=== PATIENT | male | born 1990 | race Caucasian/White ===

== ENCOUNTER 2017-05-14 03:33 | Inpatient (IN) | payer MEDICAID ==
[~2017-05-14] VITALS: Ht 177.8 cm; Wt 81.6 kg
[~2017-05-14 03:33] MED LIST: CLIN300C3 PO; HYDR-548 PO; PRED50TA PO
[2017-05-14 04:31] LABS: BASOPHILS # (AUTO) 0.1 K/uL (0.0-8.0); BASOPHILS % (AUTO) 0.4 % (0.0-2.0); EOSINOPHILS % (AUTO) 0.2 % (0.0-7.0); HEMATOCRIT 31.8 % (40-50); HEMOGLOBIN 10.5 G/DL (14.0-18.0); LYMPHOCYTES # (AUTO) 0.6 K/UL (0.8-4.8); MEAN CORPUSCULAR HEMOGLOBIN 25.9 UUG (27.0-31.0); MEAN CORPUSCULAR HGB CONC 33 g/dL (32.0-37.0); MEAN CORPUSCULAR VOLUME 78.4 FL (82.0-92.0); MONOCYTES # (AUTO) 1.1 K/UL (0.1-1.30); MONOCYTES % (AUTO) 7.5 % (0.0-11.0); NEUTROPHILS # (AUTO) 12.8 K/UL (1.8-8.9); NEUTROPHILS % (AUTO) 87.9 % (38.5-71.5); PLATELET COUNT (AUTO) 220 K/UL (150-450); RED BLOOD CELL COUNT(AUTO) 4.06 MIL/UL (4.7-6.1); WHITE BLOOD COUNT (AUTO) 14.6 K/UL (4.0-11.2)
[2017-05-14] MEDS ORDERED: PIPERACILLIN SODIUM/TAZOBACTAM 3.375 G in IV DEXTROSE 5% 50 ML IV ONE (04:45)
[2017-05-14] MEDS ORDERED: VANCOMYCIN IV 1,000 MG in IV DEXTROSE 5% 250 ML IV ONE (04:45)
[2017-05-14] MEDS ORDERED: IV NORMAL SALINE 1000 ML BAG IV ONE (04:45)
[2017-05-14 04:53] LABS: BILIRUBIN,DIRECT 0.3 mg/dL (0.0-0.2); BILIRUBIN,TOTAL 0.8 mg/dL (0.2-1.0); CREATININE 1.1 mg/dL (0.6-1.3); POTASSIUM 3.3 mmol/L (3.5-5.1); TOTAL PROTEIN, SERUM 7.3 g/dL (6.4-8.2)
[2017-05-14] MEDS ORDERED: IV NORMAL SALINE 250 ML IV ONE (05:05)
[2017-05-14] MEDS ORDERED: NORMAL SALINE FLUSH 10 ML DISP.SYRIN ONE (05:05)
[2017-05-14] MEDS ORDERED: IOHEXOL 350 100 ML INFUS..BTL ONE (05:05)
[2017-05-14] MEDS ORDERED: PIPERACILLIN/TAZOBACTAM/D5W 50 ML IV ONE (05:09)
[2017-05-14] MEDS ORDERED: VANCOMYCIN IV 200 ML ONE (05:55)
[2017-05-14] MEDS ORDERED: IV NS 1000 ML 1,000 ML IV PRN (06:06)
[2017-05-14] MEDS ORDERED: MAGNESIUM HYDROXIDE 30 ML LIQUID UDC PO PRN (06:15)
[2017-05-14] MEDS ORDERED: Z GUARD REMEDY PASTE 57 GM TUBE TOP PRN (06:15)
[2017-05-14] MEDS ORDERED: VANCOMYCIN IV 1 G in PREMIXED 0 EACH IV SCH (06:15)
[2017-05-14] MEDS ORDERED: KETOROLAC TROMETHAMINE 15 MG INJ ONE (06:22)
[2017-05-14] MEDS ORDERED: KETOROLAC TROMETHAMINE 30 MG INJ IVP ONE (06:30)
[2017-05-14 08:11] VITALS: BP 94/61
[2017-05-14] MEDS: PANTOPRAZOLE SODIUM 40 MG TABLET.DR PO SCH (08:19)
[2017-05-14] MEDS ORDERED: ALBUTEROL SULFATE 2.5 MG/3 ML NEBU NEB PRN (11:00)
[2017-05-14] MEDS ORDERED: GUAIFENESIN/DEXTROMETHORPHAN 5 ML UDC PO PRN (11:00)
[2017-05-14] MEDS: IV NS 1000 ML 1,000 ML IV PRN (11:48)
[2017-05-14] MEDS: LEVOFLOXACIN 500 MG/D5W 500 MG in PREMIXED 1 EACH IV SCH (11:48)
[2017-05-14 12:05] VITALS: BP 97/58
[2017-05-14] MEDS: PIPERACILLIN SODIUM/TAZOBACTAM 4.5 G in IV DEXTROSE 5% 50 ML IV SCH ×2 (14:15→21:36)
[2017-05-14] MEDS ORDERED: POTASSIUM CHLORIDE 20 MEQ TAB.PRT.SR PO ONE (14:15)
[2017-05-14] MEDS: HYDROCODONE/APAP 5-325MG TABLET PO PRN (14:55)
[2017-05-14] MEDS ORDERED: VANCOMYCIN IV 1,250 MG in IV DEXTROSE 5% 500 ML IV SCH (16:00)
[2017-05-14 16:50] VITALS: BP 122/84
[2017-05-14 20:00] VITALS: BP 112/74
[2017-05-14] MEDS: LACTOBACILLUS RHAMNOSUS GG 1 EACH CAPSULE PO SCH (20:26)
[2017-05-14 22:09] VITALS: BP 121/82
[2017-05-14] MEDS: ACETAMINOPHEN 325 MG TABLET PO PRN (22:11)
[2017-05-14] MEDS: MORPHINE SULFATE 2 MG/1 ML DISP.SYRIN IV PRN (23:15)
[2017-05-14] MEDS ORDERED: MORPHINE SULFATE 2 MG/1 ML DISP.SYRIN ONE (23:24)
[2017-05-15] VITALS: BP 109/70
[2017-05-15] MEDS: IV NS 1000 ML 1,000 ML IV PRN ×2 (01:15→18:37)
[2017-05-15 04:00] VITALS: BP 122/75
[2017-05-15] MEDS: ACETAMINOPHEN 325 MG TABLET PO PRN ×2 (04:06→10:38)
[2017-05-15] MEDS: PIPERACILLIN SODIUM/TAZOBACTAM 4.5 G in IV DEXTROSE 5% 50 ML IV SCH ×2 (05:15→13:21)
[2017-05-15] MEDS: MORPHINE SULFATE 2 MG/1 ML DISP.SYRIN IV PRN (05:26)
[2017-05-15] MEDS ORDERED: MORPHINE SULFATE 2 MG/1 ML DISP.SYRIN ONE (05:35)
[2017-05-15] MEDS: PANTOPRAZOLE SODIUM 40 MG TABLET.DR PO SCH (06:41)
[2017-05-15 07:31] LABS: CREATININE 0.9 mg/dL (0.6-1.3); MAGNESIUM 1.6 mg/dL (1.8-2.4); PHOSPHOROUS 2.7 mg/dL (2.5-4.9); POTASSIUM 3.3 mmol/L (3.5-5.1)
[2017-05-15 07:59] LABS: BASOPHILS % (AUTO) 0.2 % (0.0-2.0); EOSINOPHILS # (AUTO) 0.1 K/uL (0.0-0.7); EOSINOPHILS % (AUTO) 0.7 % (0.0-7.0); HEMATOCRIT 32.6 % (40-50); HEMOGLOBIN 10.9 G/DL (14.0-18.0); LYMPHOCYTES # (AUTO) 0.5 K/UL (0.8-4.8); LYMPHOCYTES % (AUTO) 3.4 % (20.5-51.5); MEAN CORPUSCULAR HEMOGLOBIN 26.1 UUG (27.0-31.0); MEAN CORPUSCULAR HGB CONC 34 g/dL (32.0-37.0); MEAN CORPUSCULAR VOLUME 77.8 FL (82.0-92.0); NEUTROPHILS # (AUTO) 12.9 K/UL (1.8-8.9); NEUTROPHILS % (AUTO) 88.7 % (38.5-71.5); PLATELET COUNT (AUTO) 211 K/UL (150-450); RED BLOOD CELL COUNT(AUTO) 4.19 MIL/UL (4.7-6.1); WHITE BLOOD COUNT (AUTO) 14.5 K/UL (4.0-11.2)
[2017-05-15] MEDS: LACTOBACILLUS RHAMNOSUS GG 1 EACH CAPSULE PO SCH ×2 (08:04→22:02)
[2017-05-15] MEDS: LEVOFLOXACIN 500 MG/D5W 500 MG in PREMIXED 1 EACH IV SCH (10:38)
[2017-05-15 12:00] VITALS: BP 129/87
[2017-05-15 13:16] LABS: BAND % (MANUAL) 25 % (0-10); LYMPHOCYTES % (MANUAL) 6 % (20-40); MONOCYTES % (MANUAL) 10 % (2-10); NEUTROPHILS % (MANUAL) 59 % (42-75)
[2017-05-15] MEDS ORDERED: POTASSIUM CHLORIDE 20 MEQ TAB.PRT.SR PO ONE (15:30)
[2017-05-15 15:47] VITALS: BP 118/82
[2017-05-15] MEDS: MAGNESIUM SULFATE/D5W 100 ML IV SCH ×2 (16:39→16:40)
[2017-05-15 20:00] VITALS: BP 132/89
[2017-05-16 00:36] VITALS: BP 135/90
[2017-05-16] MEDS: ACETAMINOPHEN 325 MG TABLET PO PRN ×3 (00:40→15:17)
[2017-05-16] MEDS: IV NS 1000 ML 1,000 ML IV PRN ×2 (02:14→13:49)
[2017-05-16] MEDS: MORPHINE SULFATE 2 MG/1 ML DISP.SYRIN IV PRN ×3 (02:19→13:54)
[2017-05-16 04:00] VITALS: BP 130/89
[2017-05-16] MEDS: PANTOPRAZOLE SODIUM 40 MG TABLET.DR PO SCH (06:17)
[2017-05-16] MEDS: LACTOBACILLUS RHAMNOSUS GG 1 EACH CAPSULE PO SCH ×2 (08:55→20:20)
[2017-05-16 10:14] LABS: BASOPHILS # (AUTO) 0.1 K/uL (0.0-8.0); BASOPHILS % (AUTO) 0.8 % (0.0-2.0); EOSINOPHILS % (AUTO) 0.1 % (0.0-7.0); HEMATOCRIT 33.2 % (40-50); LYMPHOCYTES # (AUTO) 0.5 K/UL (0.8-4.8); LYMPHOCYTES % (AUTO) 2.9 % (20.5-51.5); MEAN CORPUSCULAR HEMOGLOBIN 25.8 UUG (27.0-31.0); MEAN CORPUSCULAR HGB CONC 33 g/dL (32.0-37.0); MEAN CORPUSCULAR VOLUME 77.6 FL (82.0-92.0); MONOCYTES # (AUTO) 1.3 K/UL (0.1-1.30); MONOCYTES % (AUTO) 7.2 % (0.0-11.0); PLATELET COUNT (AUTO) 204 K/UL (150-450); RED BLOOD CELL COUNT(AUTO) 4.27 MIL/UL (4.7-6.1); WHITE BLOOD COUNT (AUTO) 17.9 K/UL (4.0-11.2)
[2017-05-16 10:29] LABS: ALANINE AMINOTRANSFERASE 30 U/L (16-63); ALKALINE PHOSPHATASE 184 U/L (50-136); ASPARTATE AMINOTRANSFERASE 26 U/L (15-37); BILIRUBIN,TOTAL 0.5 mg/dL (0.2-1.0); CARBON DIOXIDE 24 mmol/L (21-32); CHLORIDE 94 mmol/L (98-107); CREATININE 0.7 mg/dL (0.6-1.3); GLUCOSE 126 mg/dL (74-106); MAGNESIUM 1.5 mg/dL (1.8-2.4); PHOSPHOROUS 2.6 mg/dL (2.5-4.9); TOTAL PROTEIN, SERUM 6.4 g/dL (6.4-8.2); UREA NITROGEN, BLOOD 9 mg/dL (7-18)
[2017-05-16] MEDS ORDERED: MAGNESIUM OXIDE 400 MG TABLET PO ONE (11:30)
[2017-05-16] MEDS ORDERED: POTASSIUM CHLORIDE 20 MEQ TAB.PRT.SR PO ONE (11:30)
[2017-05-16] MEDS: LEVOFLOXACIN 500 MG/D5W 500 MG in PREMIXED 1 EACH IV SCH ×2 (11:31→18:25)
[2017-05-16 11:50] VITALS: BP 114/72
[2017-05-16 14:15] VITALS: BP 138/97
[2017-05-16] MEDS: MORPHINE SULFATE 4 MG/1 ML DISP.SYRIN IV PRN ×2 (17:18→20:22)
[2017-05-16] MEDS: MEROPENEM 1 G in IV NORMAL SALINE 100 ML IV SCH ×2 (17:41→21:21)
[2017-05-16 20:00] VITALS: BP 131/89
[2017-05-17] MEDS: ACETAMINOPHEN 325 MG TABLET PO PRN ×2 (00:11→19:56)
[2017-05-17] MEDS: MORPHINE SULFATE 4 MG/1 ML DISP.SYRIN IV PRN ×8 (00:12→22:57)
[2017-05-17] MEDS: ONDANSETRON 4 MG/2 ML VIAL IV PRN (00:12)
[2017-05-17 00:16] VITALS: BP 138/88
[2017-05-17] MEDS: IV NS 1000 ML 1,000 ML IV PRN ×2 (01:15→12:46)
[2017-05-17 04:34] VITALS: BP 108/74
[2017-05-17] MEDS: MEROPENEM 1 G in IV NORMAL SALINE 100 ML IV SCH ×2 (06:37→14:26)
[2017-05-17 06:43] LABS: BASOPHILS % (AUTO) 0.1 % (0.0-2.0); EOSINOPHILS # (AUTO) 0.1 K/uL (0.0-0.7); EOSINOPHILS % (AUTO) 0.7 % (0.0-7.0); HEMATOCRIT 34.8 % (40-50); HEMOGLOBIN 11.5 G/DL (14.0-18.0); LYMPHOCYTES % (AUTO) 5.2 % (20.5-51.5); MEAN CORPUSCULAR HEMOGLOBIN 25.8 UUG (27.0-31.0); MEAN CORPUSCULAR HGB CONC 33 g/dL (32.0-37.0); MEAN CORPUSCULAR VOLUME 78.2 FL (82.0-92.0); MONOCYTES % (AUTO) 9.9 % (0.0-11.0); NEUTROPHILS # (AUTO) 16.7 K/UL (1.8-8.9); NEUTROPHILS % (AUTO) 84.1 % (38.5-71.5); PLATELET COUNT (AUTO) 164 K/UL (150-450); RED BLOOD CELL COUNT(AUTO) 4.45 MIL/UL (4.7-6.1); WHITE BLOOD COUNT (AUTO) 19.8 K/UL (4.0-11.2)
[2017-05-17] MEDS: PANTOPRAZOLE SODIUM 40 MG TABLET.DR PO SCH (06:50)
[2017-05-17 06:58] LABS: BILIRUBIN,TOTAL 0.6 mg/dL (0.2-1.0); CREATININE 0.8 mg/dL (0.6-1.3); MAGNESIUM 1.6 mg/dL (1.8-2.4); PHOSPHOROUS 3.1 mg/dL (2.5-4.9); TOTAL PROTEIN, SERUM 6.2 g/dL (6.4-8.2)
[2017-05-17] MEDS: LACTOBACILLUS RHAMNOSUS GG 1 EACH CAPSULE PO SCH ×2 (07:59→20:35)
[2017-05-17] MEDS: NICOTINE 14 MG/24HR PATCH TD SCH (07:59)
[2017-05-17] MEDS ORDERED: MAGNESIUM OXIDE 400 MG TABLET PO ONE (09:30)
[2017-05-17] MEDS ORDERED: POTASSIUM CHLORIDE 20 MEQ TAB.PRT.SR PO ONE (09:30)
[2017-05-17 10:58] LABS: BAND % (MANUAL) 14 % (0-10); LYMPHOCYTES % (MANUAL) 5 % (20-40); MONOCYTES % (MANUAL) 11 % (2-10); MYELOCYTES % 1 % (0-0); NEUTROPHILS % (MANUAL) 69 % (42-75)
[2017-05-17 12:10] VITALS: BP 109/75
[2017-05-17] MEDS: VANCOMYCIN IV 1,500 MG in IV DEXTROSE 5% 500 ML IV SCH (15:14)
[2017-05-17 15:53] VITALS: BP 127/85
[2017-05-17] MEDS: LEVOFLOXACIN 500 MG/D5W 500 MG in PREMIXED 1 EACH IV SCH (18:20)
[2017-05-17 19:00] VITALS: BP 134/90
[2017-05-17] MEDS: RIFAMPIN IV SCH (20:34)
[2017-05-17] MEDS: NORMAL SALINE IV SCH (20:34)
[2017-05-17 21:04] LABS: *BILIRUBIN,URIN NEGATIVE (NEGATIVE); *BLOOD, URINE 1+ (NEGATIVE); *CLARITY,URINE CLOUDY (CLEAR); *COLOR,URINE YELLOW (YELLOW); *KETONES,URINE NEGATIVE (NEGATIVE); *PROTEIN,URINE 2+ (NEGATIVE); *UROBILINOGEN,URINE 0.2 E.U./dl (NORMAL); LEUKOCYTE ESTERASE ,URINE NEGATIVE (NEGATIVE); NITRITE, URINE NEGATIVE (NEGATIVE); UGLUCOSE NEGATIVE (NEGATIVE)
[2017-05-17 21:14] LABS: MUCUS,URINE MODERATE /LPF (0-FEW); URINE AMORPHOUS URATE MODERATE /HPF; WBC,URINE 0-3 /HPF (0-3)
[2017-05-17 21:17] LABS: *AMPHETAMINE, URINE NEGATIVE (NEGATIVE); *BARBITURATE, URINE NEGATIVE (NEGATIVE); *CANNABINOID, URINE NEGATIVE (NEGATIVE); *COCCAINE, URINE NEGATIVE (NEGATIVE); *OPIATE, URINE POSITIVE (NEGATIVE); *PHENCYCLIDINE SCREEN,URINE NEGATIVE (NEGATIVE)
[2017-05-17 23:59] VITALS: BP 126/84
[2017-05-18] MEDS: VANCOMYCIN IV 1,500 MG in IV DEXTROSE 5% 500 ML IV SCH ×3 (01:52→23:51)
[2017-05-18] MEDS: MORPHINE SULFATE 4 MG/1 ML DISP.SYRIN IV PRN ×7 (02:02→20:31)
[2017-05-18 04:00] VITALS: BP 130/80
[2017-05-18] MEDS: PANTOPRAZOLE SODIUM 40 MG TABLET.DR PO SCH (06:25)
[2017-05-18] MEDS: IV NS 1000 ML 1,000 ML IV PRN ×2 (06:29→21:57)
[2017-05-18 07:02] LABS: EOSINOPHILS # (AUTO) 0.1 K/uL (0.0-0.7); EOSINOPHILS % (AUTO) 0.3 % (0.0-7.0); HEMOGLOBIN 11.4 G/DL (14.0-18.0); LYMPHOCYTES # (AUTO) 1.1 K/UL (0.8-4.8); LYMPHOCYTES % (AUTO) 5.1 % (20.5-51.5); MEAN CORPUSCULAR HEMOGLOBIN 26.1 UUG (27.0-31.0); MEAN CORPUSCULAR HGB CONC 34 g/dL (32.0-37.0); MEAN CORPUSCULAR VOLUME 77.6 FL (82.0-92.0); MONOCYTES # (AUTO) 2.6 K/UL (0.1-1.30); MONOCYTES % (AUTO) 11.9 % (0.0-11.0); NEUTROPHILS # (AUTO) 18.4 K/UL (1.8-8.9); NEUTROPHILS % (AUTO) 82.7 % (38.5-71.5); PLATELET COUNT (AUTO) 136 K/UL (150-450); RED BLOOD CELL COUNT(AUTO) 4.39 MIL/UL (4.7-6.1); WHITE BLOOD COUNT (AUTO) 22.2 K/UL (4.0-11.2)
[2017-05-18 07:36] LABS: BILIRUBIN,TOTAL 1.5 mg/dL (0.2-1.0); CREATININE 0.8 mg/dL (0.6-1.3); MAGNESIUM 1.9 mg/dL (1.8-2.4); PHOSPHOROUS 2.5 mg/dL (2.5-4.9); POTASSIUM 2.9 mmol/L (3.5-5.1); TOTAL PROTEIN, SERUM 6.1 g/dL (6.4-8.2)
[2017-05-18 07:51] LABS: THYROID STIMULATING HORMONE 0.992 mIU/mL (0.358-3.740)
[2017-05-18] MEDS: NICOTINE 14 MG/24HR PATCH TD SCH (08:12)
[2017-05-18] MEDS: LACTOBACILLUS RHAMNOSUS GG 1 EACH CAPSULE PO SCH ×2 (08:12→21:00)
[2017-05-18] MEDS ORDERED: POTASSIUM CHLORIDE 20 MEQ TAB.PRT.SR PO ONE (09:45)
[2017-05-18 10:29] LABS: BAND % (MANUAL) 13 % (0-10); LYMPHOCYTES % (MANUAL) 5 % (20-40); MONOCYTES % (MANUAL) 12 % (2-10); NEUTROPHILS % (MANUAL) 70 % (42-75)
[2017-05-18 11:35] VITALS: BP 118/82
[2017-05-18 15:18] LABS: *AMPHETAMINE, URINE NEGATIVE (NEGATIVE); *BARBITURATE, URINE NEGATIVE (NEGATIVE); *CANNABINOID, URINE NEGATIVE (NEGATIVE); *COCCAINE, URINE NEGATIVE (NEGATIVE); *OPIATE, URINE POSITIVE (NEGATIVE); *PHENCYCLIDINE SCREEN,URINE NEGATIVE (NEGATIVE)
[2017-05-18 16:05] VITALS: BP 117/83
[2017-05-18] MEDS: ACETAMINOPHEN 325 MG TABLET PO PRN (16:24)
[2017-05-18] MEDS: PROTEIN SUPPLEMENT (PROSTAT) 30 ML LIQUID PO SCH (16:25)
[2017-05-18] MEDS: LEVOFLOXACIN 500 MG/D5W 500 MG in PREMIXED 1 EACH IV SCH (16:28)
[2017-05-18 17:09] LABS: PRE ALBUMIN 5.6 MG/DL (18.0-35.7)
[2017-05-18] MEDS: RIFAMPIN IV SCH (18:37)
[2017-05-18] MEDS: NORMAL SALINE IV SCH (18:37)
[2017-05-18 20:27] VITALS: BP 119/81
[2017-05-18] MEDS ORDERED: MORPHINE SULFATE 4 MG/1 ML DISP.SYRIN IV ONE (23:00)
[2017-05-18] MEDS ORDERED: METOPROLOL TARTRATE 50 MG TABLET PO ONE (23:00)
[2017-05-18] MEDS ORDERED: MORPHINE SULFATE 4 MG/1 ML DISP.SYRIN ONE (23:08)
[2017-05-18] MEDS ORDERED: METOPROLOL TARTRATE 50 MG TABLET ONE (23:10)
[2017-05-19] MEDS: MORPHINE SULFATE 4 MG/1 ML DISP.SYRIN IV PRN ×6 (02:13→22:56)
[2017-05-19] MEDS ORDERED: MORPHINE SULFATE 4 MG/1 ML DISP.SYRIN ONE ×2 (02:23→06:02)
[2017-05-19 05:00] VITALS: BP 118/81
[2017-05-19] MEDS: PANTOPRAZOLE SODIUM 40 MG TABLET.DR PO SCH (06:00)
[2017-05-19] MEDS: VANCOMYCIN IV 1,500 MG in IV DEXTROSE 5% 500 ML IV SCH (06:00)
[2017-05-19 06:43] LABS: BASOPHILS % (AUTO) 0.1 % (0.0-2.0); EOSINOPHILS # (AUTO) 0.1 K/uL (0.0-0.7); EOSINOPHILS % (AUTO) 0.3 % (0.0-7.0); HEMOGLOBIN 10.2 G/DL (14.0-18.0); LYMPHOCYTES # (AUTO) 1.8 K/UL (0.8-4.8); LYMPHOCYTES % (AUTO) 6.9 % (20.5-51.5); MEAN CORPUSCULAR HEMOGLOBIN 25.9 UUG (27.0-31.0); MEAN CORPUSCULAR HGB CONC 34 g/dL (32.0-37.0); MEAN CORPUSCULAR VOLUME 76.3 FL (82.0-92.0); MONOCYTES # (AUTO) 3.2 K/UL (0.1-1.30); MONOCYTES % (AUTO) 12.3 % (0.0-11.0); NEUTROPHILS # (AUTO) 20.8 K/UL (1.8-8.9); NEUTROPHILS % (AUTO) 80.4 % (38.5-71.5); PLATELET COUNT (AUTO) 164 K/UL (150-450); RED BLOOD CELL COUNT(AUTO) 3.94 MIL/UL (4.7-6.1); WHITE BLOOD COUNT (AUTO) 25.9 K/UL (4.0-11.2)
[2017-05-19 06:56] LABS: ALANINE AMINOTRANSFERASE 20 U/L (16-63); ALKALINE PHOSPHATASE 158 U/L (50-136); ASPARTATE AMINOTRANSFERASE 23 U/L (15-37); BILIRUBIN,TOTAL 1.6 mg/dL (0.2-1.0); CARBON DIOXIDE 25 mmol/L (21-32); CHLORIDE 97 mmol/L (98-107); CREATININE 0.7 mg/dL (0.6-1.3); GLUCOSE 109 mg/dL (74-106); MAGNESIUM 1.9 mg/dL (1.8-2.4); PHOSPHOROUS 3.8 mg/dL (2.5-4.9); POTASSIUM 2.9 mmol/L (3.5-5.1); TOTAL PROTEIN, SERUM 5.8 g/dL (6.4-8.2); UREA NITROGEN, BLOOD 10 mg/dL (7-18)
[2017-05-19] MEDS ORDERED: PROPOFOL 200 MG/20 ML BOTTLE IV ONE (07:25)
[2017-05-19] MEDS ORDERED: IV LACTATED RINGERS SOLUTION 1,000 ML BAG IV ONE (07:25)
[2017-05-19] MEDS: NICOTINE 14 MG/24HR PATCH TD SCH (08:33)
[2017-05-19] MEDS: LACTOBACILLUS RHAMNOSUS GG 1 EACH CAPSULE PO SCH ×2 (08:33→21:20)
[2017-05-19] MEDS: PROTEIN SUPPLEMENT (PROSTAT) 30 ML LIQUID PO SCH ×3 (08:56→16:47)
[2017-05-19 09:18] LABS: ABG BASE EXCESS 1.6 mmol/L; ABG HCO3 23.1 mmol/L; ABG PCO2 26.8 mmHg (35.0-45.0); ABG PH 7.554 (7.350-7.450); ABG PO2 71.9 mmHg (75.0-100.0); ABG SITE RIGHT RADIAL; ABG TOTAL HEMOGLOBIN 10.8 G/dL (13.5-18.0); COHb 1.5 % (0.5-1.5); MetHb 0.4 % (0.0-1.5); VENT MODE room air
[2017-05-19] MEDS ORDERED: BENZOCAINE 20% TOPICAL SPRAY 59.2 ML MM ONE (09:30)
[2017-05-19 10:11] LABS: BAND % (MANUAL) 14 % (0-10); LYMPHOCYTES % (MANUAL) 6 % (20-40); MONOCYTES % (MANUAL) 11 % (2-10); NEUTROPHILS % (MANUAL) 69 % (42-75)
[2017-05-19 11:00] VITALS: BP 123/78
[2017-05-19] MEDS: POTASSIUM CHLORIDE 50 ML IV SCH ×2 (13:50→13:52)
[2017-05-19 15:19] VITALS: BP 125/83
[2017-05-19 16:09] LABS: *QFT MITOGEN VALUE 0.24 IU/mL (.); *QFT TB AG MINUS NIL VALUE <0.00 IU/mL (.); *QFT TB AG VALUE 0.06 IU/mL (.); *QFT TB GOLD Indeterminate (Negative)
[2017-05-19] MEDS: IV NS 1000 ML 1,000 ML IV PRN (17:00)
[2017-05-19] MEDS: LEVOFLOXACIN 500 MG/D5W 500 MG in PREMIXED 1 EACH IV SCH (17:50)
[2017-05-19] MEDS: VANCOMYCIN IV 1,250 MG in IV DEXTROSE 5% 500 ML IV SCH (19:23)
[2017-05-19 20:00] VITALS: BP 128/91
[2017-05-19] MEDS: RIFAMPIN IV SCH (21:28)
[2017-05-19] MEDS: NORMAL SALINE IV SCH (21:28)
[2017-05-20] MEDS: VANCOMYCIN IV 1,250 MG in IV DEXTROSE 5% 500 ML IV SCH ×3 (00:38→05:28)
[2017-05-20] MEDS: MORPHINE SULFATE 4 MG/1 ML DISP.SYRIN IV PRN ×7 (01:59→21:38)
[2017-05-20 04:44] VITALS: BP 139/98
[2017-05-20] MEDS: PANTOPRAZOLE SODIUM 40 MG TABLET.DR PO SCH (06:08)
[2017-05-20 07:05] LABS: ALANINE AMINOTRANSFERASE 18 U/L (16-63); ALKALINE PHOSPHATASE 128 U/L (50-136); ASPARTATE AMINOTRANSFERASE 28 U/L (15-37); BILIRUBIN,TOTAL 1.4 mg/dL (0.2-1.0); CARBON DIOXIDE 26 mmol/L (21-32); CHLORIDE 97 mmol/L (98-107); CREATININE 0.6 mg/dL (0.6-1.3); GLUCOSE 97 mg/dL (74-106); POTASSIUM 2.9 mmol/L (3.5-5.1); TOTAL PROTEIN, SERUM 5.8 g/dL (6.4-8.2); UREA NITROGEN, BLOOD 9 mg/dL (7-18)
[2017-05-20 07:36] LABS: BASOPHILS # (AUTO) 0.5 K/uL (0.0-8.0); BASOPHILS % (AUTO) 1.7 % (0.0-2.0); EOSINOPHILS # (AUTO) 0.1 K/uL (0.0-0.7); EOSINOPHILS % (AUTO) 0.2 % (0.0-7.0); HEMATOCRIT 29.4 % (40-50); HEMOGLOBIN 9.8 G/DL (14.0-18.0); LYMPHOCYTES # (AUTO) 2.5 K/UL (0.8-4.8); LYMPHOCYTES % (AUTO) 8.4 % (20.5-51.5); MEAN CORPUSCULAR HEMOGLOBIN 25.6 UUG (27.0-31.0); MEAN CORPUSCULAR HGB CONC 33 g/dL (32.0-37.0); MEAN CORPUSCULAR VOLUME 76.7 FL (82.0-92.0); MONOCYTES # (AUTO) 2.8 K/UL (0.1-1.30); MONOCYTES % (AUTO) 9.4 % (0.0-11.0); NEUTROPHILS # (AUTO) 23.9 K/UL (1.8-8.9); NEUTROPHILS % (AUTO) 80.3 % (38.5-71.5); RED BLOOD CELL COUNT(AUTO) 3.84 MIL/UL (4.7-6.1)
[2017-05-20 07:40] LABS: PLATELET COUNT (AUTO) 216 K/UL (150-450)
[2017-05-20 07:58] LABS: WHITE BLOOD COUNT (AUTO) 29.8 K/UL (4.0-11.2)
[2017-05-20] MEDS: PROTEIN SUPPLEMENT (PROSTAT) 30 ML LIQUID PO SCH ×3 (08:10→17:00)
[2017-05-20] MEDS: NICOTINE 14 MG/24HR PATCH TD SCH (08:11)
[2017-05-20] MEDS: LACTOBACILLUS RHAMNOSUS GG 1 EACH CAPSULE PO SCH ×2 (08:11→20:57)
[2017-05-20] MEDS: BOOST PLUS 237 ML LIQUID (VERY VANILLA) PO SCH ×3 (08:11→17:16)
[2017-05-20 09:45] LABS: BAND % (MANUAL) 11 % (0-10); LYMPHOCYTES % (MANUAL) 9 % (20-40); METAMYELOCYTES % 1 % (0-1); MONOCYTES % (MANUAL) 11 % (2-10); NEUTROPHILS % (MANUAL) 68 % (42-75)
[2017-05-20] MEDS: IV NS 1000 ML 1,000 ML IV PRN (11:09)
[2017-05-20] MEDS: POTASSIUM CHLORIDE 20 MEQ TAB.PRT.SR PO SCH ×3 (11:19→20:57)
[2017-05-20 12:00] VITALS: BP 121/86
[2017-05-20] MEDS: VANCOMYCIN IV 1,500 MG in IV DEXTROSE 5% 500 ML IV SCH ×2 (14:35→20:58)
[2017-05-20 16:09] VITALS: BP 127/87
[2017-05-20] MEDS: LEVOFLOXACIN 500 MG/D5W 500 MG in PREMIXED 1 EACH IV SCH (17:16)
[2017-05-20] MEDS: RIFAMPIN IV SCH (18:46)
[2017-05-20] MEDS: NORMAL SALINE IV SCH (18:46)
[2017-05-20 20:28] VITALS: BP 121/88
[2017-05-20] MEDS: HYDROCODONE/APAP 5-325MG TABLET PO PRN (20:57)
[2017-05-21] MEDS: MORPHINE SULFATE 4 MG/1 ML DISP.SYRIN IV PRN ×8 (00:34→22:28)
[2017-05-21 04:50] VITALS: BP 125/86
[2017-05-21] MEDS: PANTOPRAZOLE SODIUM 40 MG TABLET.DR PO SCH (05:58)
[2017-05-21] MEDS: VANCOMYCIN IV 1,500 MG in IV DEXTROSE 5% 500 ML IV SCH ×3 (05:59→21:56)
[2017-05-21 08:23] LABS: BASOPHILS % (AUTO) 0.1 % (0.0-2.0); EOSINOPHILS # (AUTO) 0.1 K/uL (0.0-0.7); EOSINOPHILS % (AUTO) 0.5 % (0.0-7.0); HEMATOCRIT 29.5 % (40-50); HEMOGLOBIN 9.7 G/DL (14.0-18.0); LYMPHOCYTES # (AUTO) 2.1 K/UL (0.8-4.8); LYMPHOCYTES % (AUTO) 7.6 % (20.5-51.5); MEAN CORPUSCULAR HEMOGLOBIN 25.6 UUG (27.0-31.0); MEAN CORPUSCULAR HGB CONC 33 g/dL (32.0-37.0); MEAN CORPUSCULAR VOLUME 77.9 FL (82.0-92.0); NEUTROPHILS # (AUTO) 23.9 K/UL (1.8-8.9); NEUTROPHILS % (AUTO) 84.8 % (38.5-71.5); RED BLOOD CELL COUNT(AUTO) 3.79 MIL/UL (4.7-6.1); WHITE BLOOD COUNT (AUTO) 28.1 K/UL (4.0-11.2)
[2017-05-21 08:28] LABS: ALANINE AMINOTRANSFERASE 23 U/L (16-63); ALKALINE PHOSPHATASE 124 U/L (50-136); ASPARTATE AMINOTRANSFERASE 26 U/L (15-37); BILIRUBIN,TOTAL 0.7 mg/dL (0.2-1.0); CARBON DIOXIDE 24 mmol/L (21-32); CHLORIDE 100 mmol/L (98-107); CREATININE 0.7 mg/dL (0.6-1.3); GLUCOSE 133 mg/dL (74-106); MAGNESIUM 1.9 mg/dL (1.8-2.4); PHOSPHOROUS 3.5 mg/dL (2.5-4.9); POTASSIUM 3.9 mmol/L (3.5-5.1); TOTAL PROTEIN, SERUM 5.9 g/dL (6.4-8.2); UREA NITROGEN, BLOOD 9 mg/dL (7-18)
[2017-05-21] MEDS: LACTOBACILLUS RHAMNOSUS GG 1 EACH CAPSULE PO SCH ×2 (08:54→20:52)
[2017-05-21] MEDS: PROTEIN SUPPLEMENT (PROSTAT) 30 ML LIQUID PO SCH ×3 (08:54→16:50)
[2017-05-21] MEDS: BOOST PLUS 237 ML LIQUID (VERY VANILLA) PO SCH ×3 (08:54→16:49)
[2017-05-21] MEDS: NICOTINE 14 MG/24HR PATCH TD SCH (08:54)
[2017-05-21] MEDS: IV NS 1000 ML 1,000 ML IV PRN (09:02)
[2017-05-21 09:32] LABS: PLATELET COUNT (AUTO) 273 K/UL (150-450)
[2017-05-21 11:38] LABS: BAND % (MANUAL) 7 % (0-10); LYMPHOCYTES % (MANUAL) 8 % (20-40); METAMYELOCYTES % 2 % (0-1); MONOCYTES % (MANUAL) 8 % (2-10); MYELOCYTES % 1 % (0-0); NEUTROPHILS % (MANUAL) 74 % (42-75)
[2017-05-21 11:56] VITALS: BP 121/85
[2017-05-21] MEDS ORDERED: POTASSIUM CHLORIDE 20 MEQ TAB.PRT.SR PO ONE (15:45)
[2017-05-21 16:10] VITALS: BP 125/90
[2017-05-21] MEDS: LEVOFLOXACIN 500 MG/D5W 500 MG in PREMIXED 1 EACH IV SCH (16:34)
[2017-05-21] MEDS: NORMAL SALINE IV SCH (19:49)
[2017-05-21] MEDS: RIFAMPIN IV SCH (19:49)
[2017-05-21 20:28] VITALS: BP 129/90
[2017-05-22] MEDS: MORPHINE SULFATE 4 MG/1 ML DISP.SYRIN IV PRN ×7 (01:46→20:48)
[2017-05-22] MEDS: VANCOMYCIN IV 1,500 MG in IV DEXTROSE 5% 500 ML IV SCH ×3 (03:55→19:41)
[2017-05-22 04:59] VITALS: BP 133/90
[2017-05-22] MEDS: PANTOPRAZOLE SODIUM 40 MG TABLET.DR PO SCH (07:17)
[2017-05-22] MEDS: PROTEIN SUPPLEMENT (PROSTAT) 30 ML LIQUID PO SCH ×3 (08:06→17:22)
[2017-05-22] MEDS: NICOTINE 14 MG/24HR PATCH TD SCH (08:06)
[2017-05-22] MEDS: BOOST PLUS 237 ML LIQUID (VERY VANILLA) PO SCH ×3 (08:06→17:22)
[2017-05-22] MEDS: LACTOBACILLUS RHAMNOSUS GG 1 EACH CAPSULE PO SCH ×2 (08:06→20:46)
[2017-05-22 08:32] LABS: EOSINOPHILS # (AUTO) 0.1 K/uL (0.0-0.7); EOSINOPHILS % (AUTO) 0.6 % (0.0-7.0); HEMATOCRIT 28.7 % (40-50); HEMOGLOBIN 9.7 G/DL (14.0-18.0); LYMPHOCYTES # (AUTO) 2.6 K/UL (0.8-4.8); LYMPHOCYTES % (AUTO) 11.9 % (20.5-51.5); MEAN CORPUSCULAR HGB CONC 34 g/dL (32.0-37.0); MONOCYTES % (AUTO) 9.5 % (0.0-11.0); NEUTROPHILS # (AUTO) 16.8 K/UL (1.8-8.9); PLATELET COUNT (AUTO) 338 K/UL (150-450); RED BLOOD CELL COUNT(AUTO) 3.73 MIL/UL (4.7-6.1); WHITE BLOOD COUNT (AUTO) 21.5 K/UL (4.0-11.2)
[2017-05-22 08:56] LABS: CARBON DIOXIDE 24 mmol/L (21-32); CHLORIDE 101 mmol/L (98-107); CREATININE 0.6 mg/dL (0.6-1.3); GLUCOSE 109 mg/dL (74-106); MAGNESIUM 1.9 mg/dL (1.8-2.4); PHOSPHOROUS 4.1 mg/dL (2.5-4.9); POTASSIUM 4.2 mmol/L (3.5-5.1); UREA NITROGEN, BLOOD 11 mg/dL (7-18)
[2017-05-22 09:37] LABS: BAND % (MANUAL) 3 % (0-10); LYMPHOCYTES % (MANUAL) 4 % (20-40); METAMYELOCYTES % 1 % (0-1); MONOCYTES % (MANUAL) 4 % (2-10); NEUTROPHILS % (MANUAL) 88 % (42-75)
[2017-05-22 12:13] VITALS: BP 135/97
[2017-05-22 16:37] VITALS: BP 133/97
[2017-05-22] MEDS: LEVOFLOXACIN 500 MG/D5W 500 MG in PREMIXED 1 EACH IV SCH (17:22)
[2017-05-22] MEDS: NORMAL SALINE IV SCH (19:35)
[2017-05-22] MEDS: RIFAMPIN IV SCH (19:35)
[2017-05-22 20:00] VITALS: BP 128/91
[2017-05-23] MEDS: MORPHINE SULFATE 4 MG/1 ML DISP.SYRIN IV PRN ×8 (00:02→20:59)
[2017-05-23] MEDS: IV NS 1000 ML 1,000 ML IV PRN ×2 (02:04→19:17)
[2017-05-23] MEDS: VANCOMYCIN IV 1,500 MG in IV DEXTROSE 5% 500 ML IV SCH ×4 (02:04→23:27)
[2017-05-23 04:38] VITALS: BP 118/81
[2017-05-23] MEDS: PANTOPRAZOLE SODIUM 40 MG TABLET.DR PO SCH (06:07)
[2017-05-23 08:52] LABS: EOSINOPHILS # (AUTO) 0.1 K/uL (0.0-0.7); EOSINOPHILS % (AUTO) 0.8 % (0.0-7.0); HEMOGLOBIN 9.4 G/DL (14.0-18.0); LYMPHOCYTES # (AUTO) 2.5 K/UL (0.8-4.8); LYMPHOCYTES % (AUTO) 13.8 % (20.5-51.5); MEAN CORPUSCULAR HEMOGLOBIN 26.2 UUG (27.0-31.0); MEAN CORPUSCULAR HGB CONC 34 g/dL (32.0-37.0); MEAN CORPUSCULAR VOLUME 78.1 FL (82.0-92.0); MONOCYTES # (AUTO) 1.7 K/UL (0.1-1.30); MONOCYTES % (AUTO) 9.1 % (0.0-11.0); NEUTROPHILS # (AUTO) 13.9 K/UL (1.8-8.9); NEUTROPHILS % (AUTO) 76.3 % (38.5-71.5); PLATELET COUNT (AUTO) 360 K/UL (150-450); RED BLOOD CELL COUNT(AUTO) 3.59 MIL/UL (4.7-6.1); WHITE BLOOD COUNT (AUTO) 18.2 K/UL (4.0-11.2)
[2017-05-23 09:07] LABS: CARBON DIOXIDE 25 mmol/L (21-32); CHLORIDE 102 mmol/L (98-107); CREATININE 0.7 mg/dL (0.6-1.3); GLUCOSE 115 mg/dL (74-106); MAGNESIUM 1.9 mg/dL (1.8-2.4); PHOSPHOROUS 4.4 mg/dL (2.5-4.9); POTASSIUM 4.1 mmol/L (3.5-5.1); UREA NITROGEN, BLOOD 12 mg/dL (7-18)
[2017-05-23] MEDS: NICOTINE 14 MG/24HR PATCH TD SCH (09:13)
[2017-05-23] MEDS: LACTOBACILLUS RHAMNOSUS GG 1 EACH CAPSULE PO SCH ×2 (09:13→21:41)
[2017-05-23 09:14] LABS: BAND % (MANUAL) 2 % (0-10); LYMPHOCYTES % (MANUAL) 11 % (20-40); MONOCYTES % (MANUAL) 9 % (2-10); NEUTROPHILS % (MANUAL) 78 % (42-75)
[2017-05-23] MEDS: PROTEIN SUPPLEMENT (PROSTAT) 30 ML LIQUID PO SCH ×3 (09:14→17:00)
[2017-05-23] MEDS: BOOST PLUS 237 ML LIQUID (VERY VANILLA) PO SCH ×3 (09:20→17:38)
[2017-05-23 11:28] VITALS: BP 127/89
[2017-05-23 15:13] VITALS: BP 131/92
[2017-05-23] MEDS: LEVOFLOXACIN 500 MG/D5W 500 MG in PREMIXED 1 EACH IV SCH (17:38)
[2017-05-23 17:43] VITALS: BP 141/95
[2017-05-23] MEDS: RIFAMPIN IV SCH (19:13)
[2017-05-23] MEDS: NORMAL SALINE IV SCH (19:13)
[2017-05-23 20:00] VITALS: BP 134/93
[2017-05-24] MEDS: MORPHINE SULFATE 4 MG/1 ML DISP.SYRIN IV PRN ×7 (00:27→21:42)
[2017-05-24 05:04] VITALS: BP 127/89
[2017-05-24 06:37] LABS: BASOPHILS % (AUTO) 0.2 % (0.0-2.0); EOSINOPHILS # (AUTO) 0.2 K/uL (0.0-0.7); EOSINOPHILS % (AUTO) 1.1 % (0.0-7.0); HEMOGLOBIN 9.5 G/DL (14.0-18.0); LYMPHOCYTES # (AUTO) 2.1 K/UL (0.8-4.8); LYMPHOCYTES % (AUTO) 14.1 % (20.5-51.5); MEAN CORPUSCULAR HEMOGLOBIN 26.1 UUG (27.0-31.0); MEAN CORPUSCULAR HGB CONC 33 g/dL (32.0-37.0); MEAN CORPUSCULAR VOLUME 79.2 FL (82.0-92.0); MONOCYTES # (AUTO) 1.5 K/UL (0.1-1.30); NEUTROPHILS # (AUTO) 11.3 K/UL (1.8-8.9); NEUTROPHILS % (AUTO) 74.6 % (38.5-71.5); PLATELET COUNT (AUTO) 434 K/UL (150-450); RED BLOOD CELL COUNT(AUTO) 3.66 MIL/UL (4.7-6.1); WHITE BLOOD COUNT (AUTO) 15.1 K/UL (4.0-11.2)
[2017-05-24 06:38] LABS: CARBON DIOXIDE 26 mmol/L (21-32); CHLORIDE 102 mmol/L (98-107); CREATININE 0.6 mg/dL (0.6-1.3); GLUCOSE 94 mg/dL (74-106); POTASSIUM 4.3 mmol/L (3.5-5.1); UREA NITROGEN, BLOOD 8 mg/dL (7-18)
[2017-05-24] MEDS: PANTOPRAZOLE SODIUM 40 MG TABLET.DR PO SCH (06:39)
[2017-05-24 08:20] LABS: BAND % (MANUAL) 4 % (0-10); LYMPHOCYTES % (MANUAL) 15 % (20-40); MONOCYTES % (MANUAL) 10 % (2-10); NEUTROPHILS % (MANUAL) 71 % (42-75)
[2017-05-24] MEDS: VANCOMYCIN IV 1,500 MG in IV DEXTROSE 5% 500 ML IV SCH ×2 (08:33→17:35)
[2017-05-24] MEDS: LACTOBACILLUS RHAMNOSUS GG 1 EACH CAPSULE PO SCH ×2 (08:33→21:42)
[2017-05-24] MEDS: NICOTINE 14 MG/24HR PATCH TD SCH (08:33)
[2017-05-24] MEDS: PROTEIN SUPPLEMENT (PROSTAT) 30 ML LIQUID PO SCH ×3 (08:34→17:00)
[2017-05-24] MEDS: BOOST PLUS 237 ML LIQUID (VERY VANILLA) PO SCH ×3 (09:07→17:00)
[2017-05-24 11:57] VITALS: BP 128/87
[2017-05-24 15:33] VITALS: BP 125/83
[2017-05-24] MEDS: LEVOFLOXACIN 500 MG/D5W 500 MG in PREMIXED 1 EACH IV SCH (17:35)
[2017-05-24] MEDS: IV NS 1000 ML 1,000 ML IV PRN (18:01)
[2017-05-24 20:00] VITALS: BP 139/90
[2017-05-24] MEDS: RIFAMPIN IV SCH (20:59)
[2017-05-24] MEDS: NORMAL SALINE IV SCH (20:59)
[2017-05-25] MEDS: MORPHINE SULFATE 4 MG/1 ML DISP.SYRIN IV PRN ×7 (00:40→21:20)
[2017-05-25] MEDS: VANCOMYCIN IV 1,500 MG in IV DEXTROSE 5% 500 ML IV SCH ×3 (02:38→20:36)
[2017-05-25 04:47] VITALS: BP 125/84
[2017-05-25] MEDS: PANTOPRAZOLE SODIUM 40 MG TABLET.DR PO SCH (06:14)
[2017-05-25] MEDS: PROTEIN SUPPLEMENT (PROSTAT) 30 ML LIQUID PO SCH ×3 (07:55→16:55)
[2017-05-25] MEDS: LACTOBACILLUS RHAMNOSUS GG 1 EACH CAPSULE PO SCH ×2 (09:44→20:36)
[2017-05-25] MEDS: NICOTINE 14 MG/24HR PATCH TD SCH (09:44)
[2017-05-25] MEDS: BOOST PLUS 237 ML LIQUID (VERY VANILLA) PO SCH ×3 (09:44→17:00)
[2017-05-25 09:47] VITALS: BP 129/85
[2017-05-25 11:39] VITALS: BP 122/81
[2017-05-25 16:10] VITALS: BP 128/87
[2017-05-25] MEDS: LEVOFLOXACIN 500 MG/D5W 500 MG in PREMIXED 1 EACH IV SCH (17:05)
[2017-05-25] MEDS: NORMAL SALINE IV SCH (18:52)
[2017-05-25] MEDS: RIFAMPIN IV SCH (18:52)
[2017-05-25 19:56] VITALS: BP 142/97
[2017-05-26] MEDS: MORPHINE SULFATE 4 MG/1 ML DISP.SYRIN IV PRN ×8 (00:13→21:46)
[2017-05-26 06:07] VITALS: BP 138/90
[2017-05-26] MEDS: VANCOMYCIN IV 1,500 MG in IV DEXTROSE 5% 500 ML IV SCH ×3 (06:12→22:30)
[2017-05-26] MEDS: PANTOPRAZOLE SODIUM 40 MG TABLET.DR PO SCH (06:13)
[2017-05-26] MEDS: PROTEIN SUPPLEMENT (PROSTAT) 30 ML LIQUID PO SCH ×3 (07:52→16:00)
[2017-05-26] MEDS: BOOST PLUS 237 ML LIQUID (VERY VANILLA) PO SCH ×3 (09:14→16:00)
[2017-05-26] MEDS: NICOTINE 14 MG/24HR PATCH TD SCH (09:15)
[2017-05-26] MEDS: LACTOBACILLUS RHAMNOSUS GG 1 EACH CAPSULE PO SCH ×2 (09:16→21:13)
[2017-05-26 10:02] LABS: BASOPHILS # (AUTO) 0.1 K/uL (0.0-8.0); BASOPHILS % (AUTO) 0.5 % (0.0-2.0); EOSINOPHILS # (AUTO) 0.2 K/uL (0.0-0.7); EOSINOPHILS % (AUTO) 1.4 % (0.0-7.0); HEMATOCRIT 27.6 % (40-50); HEMOGLOBIN 9.2 G/DL (14.0-18.0); LYMPHOCYTES # (AUTO) 1.7 K/UL (0.8-4.8); LYMPHOCYTES % (AUTO) 14.9 % (20.5-51.5); MEAN CORPUSCULAR HEMOGLOBIN 26.3 UUG (27.0-31.0); MEAN CORPUSCULAR HGB CONC 33 g/dL (32.0-37.0); MONOCYTES % (AUTO) 8.9 % (0.0-11.0); NEUTROPHILS # (AUTO) 8.5 K/UL (1.8-8.9); NEUTROPHILS % (AUTO) 74.3 % (38.5-71.5); PLATELET COUNT (AUTO) 492 K/UL (150-450); WHITE BLOOD COUNT (AUTO) 11.5 K/UL (4.0-11.2)
[2017-05-26 12:03] VITALS: BP 126/87
[2017-05-26 15:48] VITALS: BP 131/93
[2017-05-26] MEDS: LEVOFLOXACIN 500 MG/D5W 500 MG in PREMIXED 1 EACH IV SCH (18:00)
[2017-05-26] MEDS: NORMAL SALINE IV SCH (18:52)
[2017-05-26] MEDS: RIFAMPIN IV SCH (18:52)
[2017-05-26 20:00] VITALS: BP 138/96
[2017-05-26] MEDS: HYDROCODONE/APAP 5-325MG TABLET PO PRN (21:13)
[2017-05-26] MEDS: ONDANSETRON 4 MG/2 ML VIAL IV PRN (21:46)
[2017-05-27] MEDS: MORPHINE SULFATE 4 MG/1 ML DISP.SYRIN IV PRN ×7 (02:41→23:44)
[2017-05-27 05:00] VITALS: BP 130/90
[2017-05-27] MEDS: PANTOPRAZOLE SODIUM 40 MG TABLET.DR PO SCH (05:43)
[2017-05-27] MEDS: PROTEIN SUPPLEMENT (PROSTAT) 30 ML LIQUID PO SCH ×3 (08:00→16:46)
[2017-05-27] MEDS: VANCOMYCIN IV 1,500 MG in IV DEXTROSE 5% 500 ML IV SCH ×2 (08:58→16:44)
[2017-05-27] MEDS: LACTOBACILLUS RHAMNOSUS GG 1 EACH CAPSULE PO SCH ×2 (09:54→20:14)
[2017-05-27] MEDS: NICOTINE 14 MG/24HR PATCH TD SCH (09:54)
[2017-05-27] MEDS: BOOST PLUS 237 ML LIQUID (VERY VANILLA) PO SCH ×3 (09:55→16:46)
[2017-05-27] MEDS ORDERED: VANC1.5P16 IV (10:19)
[2017-05-27] MEDS ORDERED: LACT1CAP57 PO (10:19)
[2017-05-27 11:10] VITALS: BP 132/81
[2017-05-27 15:08] VITALS: BP 128/76
[2017-05-27] MEDS: LEVOFLOXACIN 500 MG/D5W 500 MG in PREMIXED 1 EACH IV SCH (16:45)
[2017-05-27 19:57] VITALS: BP 133/92
[2017-05-27] MEDS: RIFAMPIN IV SCH (20:46)
[2017-05-27] MEDS: NORMAL SALINE IV SCH (20:46)
[2017-05-28] MEDS: VANCOMYCIN IV 1,500 MG in IV DEXTROSE 5% 500 ML IV SCH (02:49)
[2017-05-28] MEDS: MORPHINE SULFATE 4 MG/1 ML DISP.SYRIN IV PRN ×7 (02:50→23:44)
[2017-05-28 04:55] VITALS: BP 128/90
[2017-05-28] MEDS: PANTOPRAZOLE SODIUM 40 MG TABLET.DR PO SCH (06:00)
[2017-05-28 07:13] LABS: BASOPHILS # (AUTO) 0.1 K/uL (0.0-8.0); BASOPHILS % (AUTO) 0.5 % (0.0-2.0); EOSINOPHILS # (AUTO) 0.1 K/uL (0.0-0.7); EOSINOPHILS % (AUTO) 1.3 % (0.0-7.0); HEMATOCRIT 26.6 % (40-50); LYMPHOCYTES # (AUTO) 2.3 K/UL (0.8-4.8); LYMPHOCYTES % (AUTO) 20.6 % (20.5-51.5); MEAN CORPUSCULAR HEMOGLOBIN 26.9 UUG (27.0-31.0); MEAN CORPUSCULAR HGB CONC 34 g/dL (32.0-37.0); MEAN CORPUSCULAR VOLUME 79.5 FL (82.0-92.0); MONOCYTES # (AUTO) 0.8 K/UL (0.1-1.30); MONOCYTES % (AUTO) 7.7 % (0.0-11.0); NEUTROPHILS # (AUTO) 7.7 K/UL (1.8-8.9); NEUTROPHILS % (AUTO) 69.9 % (38.5-71.5); PLATELET COUNT (AUTO) 484 K/UL (150-450); RED BLOOD CELL COUNT(AUTO) 3.35 MIL/UL (4.7-6.1)
[2017-05-28 07:49] LABS: CREATININE 0.9 mg/dL (0.6-1.3); MAGNESIUM 1.8 mg/dL (1.8-2.4); PHOSPHOROUS 4.9 mg/dL (2.5-4.9); POTASSIUM 3.9 mmol/L (3.5-5.1)
[2017-05-28] MEDS: PROTEIN SUPPLEMENT (PROSTAT) 30 ML LIQUID PO SCH ×3 (08:12→17:11)
[2017-05-28] MEDS: BOOST PLUS 237 ML LIQUID (VERY VANILLA) PO SCH ×3 (09:46→17:12)
[2017-05-28] MEDS: NICOTINE 14 MG/24HR PATCH TD SCH (09:46)
[2017-05-28] MEDS: LACTOBACILLUS RHAMNOSUS GG 1 EACH CAPSULE PO SCH ×2 (10:03→20:22)
[2017-05-28 11:39] VITALS: BP 108/68
[2017-05-28] MEDS: VANCOMYCIN IV 1,250 MG in IV DEXTROSE 5% 500 ML IV SCH ×2 (12:05→22:51)
[2017-05-28 16:06] VITALS: BP 119/64
[2017-05-28] MEDS: LEVOFLOXACIN 500 MG/D5W 500 MG in PREMIXED 1 EACH IV SCH (18:32)
[2017-05-28 20:00] VITALS: BP 137/90
[2017-05-28] MEDS: RIFAMPIN IV SCH (20:22)
[2017-05-28] MEDS: NORMAL SALINE IV SCH (20:22)
[2017-05-29] MEDS: MORPHINE SULFATE 4 MG/1 ML DISP.SYRIN IV PRN ×6 (03:00→20:32)
[2017-05-29 04:50] VITALS: BP 129/85
[2017-05-29] MEDS: PANTOPRAZOLE SODIUM 40 MG TABLET.DR PO SCH (06:14)
[2017-05-29] MEDS: VANCOMYCIN IV 1,250 MG in IV DEXTROSE 5% 500 ML IV SCH ×2 (06:14→17:05)
[2017-05-29] MEDS: LACTOBACILLUS RHAMNOSUS GG 1 EACH CAPSULE PO SCH ×2 (09:21→20:33)
[2017-05-29] MEDS: NICOTINE 14 MG/24HR PATCH TD SCH (09:21)
[2017-05-29] MEDS: PROTEIN SUPPLEMENT (PROSTAT) 30 ML LIQUID PO SCH ×3 (09:22→17:30)
[2017-05-29] MEDS: BOOST PLUS 237 ML LIQUID (VERY VANILLA) PO SCH ×3 (09:22→17:29)
[2017-05-29 12:00] VITALS: BP 124/79
[2017-05-29 12:30] VITALS: BP 124/79
[2017-05-29 16:47] VITALS: BP 128/89
[2017-05-29] MEDS: LEVOFLOXACIN 500 MG/D5W 500 MG in PREMIXED 1 EACH IV SCH (20:24)
[2017-05-29] MEDS: NORMAL SALINE IV SCH (21:28)
[2017-05-29] MEDS: RIFAMPIN IV SCH (21:28)
[2017-05-29 21:47] VITALS: BP 150/98
[2017-05-30] MEDS: MORPHINE SULFATE 4 MG/1 ML DISP.SYRIN IV PRN ×7 (00:53→21:44)
[2017-05-30] MEDS: VANCOMYCIN IV 1,250 MG in IV DEXTROSE 5% 500 ML IV SCH ×3 (03:27→20:42)
[2017-05-30 05:26] VITALS: BP 129/85
[2017-05-30] MEDS: PANTOPRAZOLE SODIUM 40 MG TABLET.DR PO SCH (06:04)
[2017-05-30 07:15] LABS: BASOPHILS # (AUTO) 0.1 K/uL (0.0-8.0); BASOPHILS % (AUTO) 0.6 % (0.0-2.0); EOSINOPHILS # (AUTO) 0.1 K/uL (0.0-0.7); EOSINOPHILS % (AUTO) 1.3 % (0.0-7.0); HEMATOCRIT 27.7 % (40-50); HEMOGLOBIN 8.9 G/DL (14.0-18.0); LYMPHOCYTES # (AUTO) 1.9 K/UL (0.8-4.8); LYMPHOCYTES % (AUTO) 20.3 % (20.5-51.5); MEAN CORPUSCULAR HEMOGLOBIN 25.9 UUG (27.0-31.0); MEAN CORPUSCULAR HGB CONC 32 g/dL (32.0-37.0); MEAN CORPUSCULAR VOLUME 80.6 FL (82.0-92.0); MONOCYTES # (AUTO) 0.8 K/UL (0.1-1.30); MONOCYTES % (AUTO) 8.3 % (0.0-11.0); NEUTROPHILS # (AUTO) 6.4 K/UL (1.8-8.9); NEUTROPHILS % (AUTO) 69.5 % (38.5-71.5); PLATELET COUNT (AUTO) 486 K/UL (150-450); RED BLOOD CELL COUNT(AUTO) 3.43 MIL/UL (4.7-6.1); WHITE BLOOD COUNT (AUTO) 9.3 K/UL (4.0-11.2)
[2017-05-30 07:26] LABS: CREATININE 0.9 mg/dL (0.6-1.3); POTASSIUM 3.8 mmol/L (3.5-5.1)
[2017-05-30] MEDS: BOOST PLUS 237 ML LIQUID (VERY VANILLA) PO SCH ×3 (10:10→16:44)
[2017-05-30] MEDS: NICOTINE 14 MG/24HR PATCH TD SCH (10:10)
[2017-05-30] MEDS: PROTEIN SUPPLEMENT (PROSTAT) 30 ML LIQUID PO SCH ×3 (10:28→16:45)
[2017-05-30] MEDS: LACTOBACILLUS RHAMNOSUS GG 1 EACH CAPSULE PO SCH ×2 (10:28→20:42)
[2017-05-30 11:27] VITALS: BP 131/90
[2017-05-30 15:06] VITALS: BP 142/90
[2017-05-30] MEDS: LEVOFLOXACIN 500 MG/D5W 500 MG in PREMIXED 1 EACH IV SCH (16:44)
[2017-05-30] MEDS: NORMAL SALINE IV SCH (18:29)
[2017-05-30] MEDS: RIFAMPIN IV SCH (18:29)
[2017-05-30 20:00] VITALS: BP 135/93
[2017-05-31] MEDS: MORPHINE SULFATE 4 MG/1 ML DISP.SYRIN IV PRN ×7 (00:32→21:17)
[2017-05-31] MEDS: VANCOMYCIN IV 1,250 MG in IV DEXTROSE 5% 500 ML IV SCH ×2 (04:33→14:04)
[2017-05-31 05:07] VITALS: BP 135/89
[2017-05-31] MEDS: PANTOPRAZOLE SODIUM 40 MG TABLET.DR PO SCH (06:20)
[2017-05-31] MEDS: PROTEIN SUPPLEMENT (PROSTAT) 30 ML LIQUID PO SCH ×3 (08:00→17:52)
[2017-05-31] MEDS: BOOST PLUS 237 ML LIQUID (VERY VANILLA) PO SCH ×3 (09:00→17:52)
[2017-05-31] MEDS: NICOTINE 14 MG/24HR PATCH TD SCH (10:35)
[2017-05-31] MEDS: LACTOBACILLUS RHAMNOSUS GG 1 EACH CAPSULE PO SCH ×2 (10:36→20:18)
[2017-05-31 12:04] VITALS: BP 121/81
[2017-05-31 15:07] VITALS: BP 124/84
[2017-05-31] MEDS: LEVOFLOXACIN 500 MG/D5W 500 MG in PREMIXED 1 EACH IV SCH (17:51)
[2017-05-31 20:00] VITALS: BP 135/83
[2017-06-01] MEDS ORDERED: MORPHINE SULFATE 4 MG/1 ML DISP.SYRIN IV PRN (00:45)
[2017-06-01] MEDS: VANCOMYCIN IV 1,250 MG in IV DEXTROSE 5% 500 ML IV SCH ×3 (00:51→16:02)
[2017-06-01] MEDS: MORPHINE SULFATE 4 MG/1 ML DISP.SYRIN IV PRN ×6 (00:51→21:29)
[2017-06-01] MEDS ORDERED: MORPHINE SULFATE 4 MG/1 ML DISP.SYRIN ONE ×2 (01:00→04:47)
[2017-06-01] MEDS: PANTOPRAZOLE SODIUM 40 MG TABLET.DR PO SCH (06:33)
[2017-06-01] MEDS: PROTEIN SUPPLEMENT (PROSTAT) 30 ML LIQUID PO SCH ×3 (08:00→16:02)
[2017-06-01] MEDS: NICOTINE 14 MG/24HR PATCH TD SCH (09:00)
[2017-06-01] MEDS: BOOST PLUS 237 ML LIQUID (VERY VANILLA) PO SCH ×3 (09:01→16:02)
[2017-06-01] MEDS: LACTOBACILLUS RHAMNOSUS GG 1 EACH CAPSULE PO SCH ×2 (09:01→21:07)
[2017-06-01 11:18] VITALS: BP 124/86
[2017-06-01 15:03] VITALS: BP 132/68
[2017-06-01] MEDS: LEVOFLOXACIN 500 MG/D5W 500 MG in PREMIXED 1 EACH IV SCH (18:23)
[2017-06-01 20:26] VITALS: BP 137/97
[2017-06-02] MEDS: MORPHINE SULFATE 4 MG/1 ML DISP.SYRIN IV PRN ×7 (00:48→21:32)
[2017-06-02] MEDS: VANCOMYCIN IV 1,250 MG in IV DEXTROSE 5% 500 ML IV SCH ×3 (02:03→20:06)
[2017-06-02 04:44] VITALS: BP 123/85
[2017-06-02 06:34] LABS: BASOPHILS % (AUTO) 0.5 % (0.0-2.0); EOSINOPHILS # (AUTO) 0.1 K/uL (0.0-0.7); HEMATOCRIT 26.4 % (40-50); HEMOGLOBIN 8.8 G/DL (14.0-18.0); LYMPHOCYTES % (AUTO) 24.5 % (20.5-51.5); MEAN CORPUSCULAR HEMOGLOBIN 26.5 UUG (27.0-31.0); MEAN CORPUSCULAR HGB CONC 33 g/dL (32.0-37.0); MEAN CORPUSCULAR VOLUME 79.5 FL (82.0-92.0); MONOCYTES # (AUTO) 0.9 K/UL (0.1-1.30); MONOCYTES % (AUTO) 10.7 % (0.0-11.0); NEUTROPHILS # (AUTO) 5.3 K/UL (1.8-8.9); NEUTROPHILS % (AUTO) 63.3 % (38.5-71.5); PLATELET COUNT (AUTO) 374 K/UL (150-450); RED BLOOD CELL COUNT(AUTO) 3.32 MIL/UL (4.7-6.1); WHITE BLOOD COUNT (AUTO) 8.3 K/UL (4.0-11.2)
[2017-06-02 06:50] LABS: BILIRUBIN,TOTAL 0.2 mg/dL (0.2-1.0); CREATININE 0.9 mg/dL (0.6-1.3); MAGNESIUM 1.7 mg/dL (1.8-2.4); PHOSPHOROUS 4.4 mg/dL (2.5-4.9); POTASSIUM 4.1 mmol/L (3.5-5.1)
[2017-06-02] MEDS: PANTOPRAZOLE SODIUM 40 MG TABLET.DR PO SCH (07:21)
[2017-06-02] MEDS: PROTEIN SUPPLEMENT (PROSTAT) 30 ML LIQUID PO SCH ×3 (08:00→17:00)
[2017-06-02] MEDS: LACTOBACILLUS RHAMNOSUS GG 1 EACH CAPSULE PO SCH ×2 (09:38→20:06)
[2017-06-02] MEDS: NICOTINE 14 MG/24HR PATCH TD SCH (09:38)
[2017-06-02] MEDS: BOOST PLUS 237 ML LIQUID (VERY VANILLA) PO SCH ×3 (09:44→17:00)
[2017-06-02 11:57] VITALS: BP 121/80
[2017-06-02] MEDS: MAGNESIUM SULFATE/D5W 100 ML IV SCH ×2 (13:14→13:15)
[2017-06-02 16:09] VITALS: BP 128/92
[2017-06-02] MEDS: LEVOFLOXACIN 500 MG/D5W 500 MG in PREMIXED 1 EACH IV SCH (18:29)
[2017-06-02 20:00] VITALS: BP 134/87
[2017-06-03] MEDS: MORPHINE SULFATE 4 MG/1 ML DISP.SYRIN IV PRN ×9 (00:31→22:56)
[2017-06-03 05:25] VITALS: BP 135/94
[2017-06-03] MEDS: VANCOMYCIN IV 1,250 MG in IV DEXTROSE 5% 500 ML IV SCH ×2 (05:28→20:57)
[2017-06-03] MEDS: PANTOPRAZOLE SODIUM 40 MG TABLET.DR PO SCH (06:21)
[2017-06-03] MEDS: PROTEIN SUPPLEMENT (PROSTAT) 30 ML LIQUID PO SCH ×3 (08:00→17:00)
[2017-06-03] MEDS: NICOTINE 14 MG/24HR PATCH TD SCH (09:28)
[2017-06-03] MEDS: LACTOBACILLUS RHAMNOSUS GG 1 EACH CAPSULE PO SCH ×2 (09:30→20:57)
[2017-06-03] MEDS: BOOST PLUS 237 ML LIQUID (VERY VANILLA) PO SCH ×3 (09:31→17:17)
[2017-06-03 11:59] VITALS: BP 118/80
[2017-06-03 16:11] VITALS: BP 123/83
[2017-06-03] MEDS: LEVOFLOXACIN 500 MG/D5W 500 MG in PREMIXED 1 EACH IV SCH (17:09)
[2017-06-03 20:00] VITALS: BP 124/79
[2017-06-04] MEDS: MORPHINE SULFATE 4 MG/1 ML DISP.SYRIN IV PRN ×8 (02:05→23:57)
[2017-06-04 04:00] VITALS: BP 127/86
[2017-06-04] MEDS: PANTOPRAZOLE SODIUM 40 MG TABLET.DR PO SCH (06:11)
[2017-06-04] MEDS: PROTEIN SUPPLEMENT (PROSTAT) 30 ML LIQUID PO SCH ×3 (08:00→17:00)
[2017-06-04] MEDS: VANCOMYCIN IV 1,250 MG in IV DEXTROSE 5% 500 ML IV SCH ×2 (08:34→19:07)
[2017-06-04] MEDS: BOOST PLUS 237 ML LIQUID (VERY VANILLA) PO SCH ×3 (08:35→17:06)
[2017-06-04] MEDS: LACTOBACILLUS RHAMNOSUS GG 1 EACH CAPSULE PO SCH ×2 (08:35→20:45)
[2017-06-04] MEDS: NICOTINE 14 MG/24HR PATCH TD SCH (08:36)
[2017-06-04 12:19] VITALS: BP 119/72
[2017-06-04 16:08] VITALS: BP 127/85
[2017-06-04] MEDS: LEVOFLOXACIN 500 MG/D5W 500 MG in PREMIXED 1 EACH IV SCH (17:44)
[2017-06-04 20:00] VITALS: BP 138/94
[2017-06-05] MEDS: MORPHINE SULFATE 4 MG/1 ML DISP.SYRIN IV PRN ×7 (03:03→22:55)
[2017-06-05] MEDS: PANTOPRAZOLE SODIUM 40 MG TABLET.DR PO SCH (06:37)
[2017-06-05] MEDS: PROTEIN SUPPLEMENT (PROSTAT) 30 ML LIQUID PO SCH ×3 (08:00→16:18)
[2017-06-05] MEDS: NICOTINE 14 MG/24HR PATCH TD SCH (09:09)
[2017-06-05] MEDS: BOOST PLUS 237 ML LIQUID (VERY VANILLA) PO SCH ×3 (09:09→16:18)
[2017-06-05] MEDS: VANCOMYCIN IV 1,250 MG in IV DEXTROSE 5% 500 ML IV SCH ×2 (09:09→19:53)
[2017-06-05] MEDS: LACTOBACILLUS RHAMNOSUS GG 1 EACH CAPSULE PO SCH ×2 (09:09→20:05)
[2017-06-05 11:13] VITALS: BP 113/73
[2017-06-05 15:27] VITALS: BP 127/87
[2017-06-05] MEDS: LEVOFLOXACIN 500 MG/D5W 500 MG in PREMIXED 1 EACH IV SCH (16:20)
[2017-06-05 20:45] VITALS: BP 129/92
[2017-06-06] MEDS: MORPHINE SULFATE 4 MG/1 ML DISP.SYRIN IV PRN ×5 (02:06→15:15)
[2017-06-06 04:00] VITALS: BP 146/96
[2017-06-06] MEDS: VANCOMYCIN IV 1,250 MG in IV DEXTROSE 5% 500 ML IV SCH (06:03)
[2017-06-06] MEDS: PANTOPRAZOLE SODIUM 40 MG TABLET.DR PO SCH (06:04)
[2017-06-06] MEDS: BOOST PLUS 237 ML LIQUID (VERY VANILLA) PO SCH ×3 (08:15→17:03)
[2017-06-06] MEDS: NICOTINE 14 MG/24HR PATCH TD SCH (08:15)
[2017-06-06] MEDS: LACTOBACILLUS RHAMNOSUS GG 1 EACH CAPSULE PO SCH (08:15)
[2017-06-06] MEDS: PROTEIN SUPPLEMENT (PROSTAT) 30 ML LIQUID PO SCH ×3 (08:16→17:03)
[2017-06-06 11:33] VITALS: BP 124/79
[2017-06-06 15:27] VITALS: BP 127/88
== END 2017-06-06 17:31 | DRG 720 ==
LOC: ER 03:35 → TELE 07:54 → MED 05-18 18:15 → CCU 05-19 11:01 → MED 05-19 13:39
PROVIDERS: ADMIT Internal Medicine; ATTEND Internal Medicine
DX: A41.02 Sepsis due to Methicillin resistant Staphylococcus aureus (principal); I26.90 Septic pulmonary embolism without acute cor pulmonale; E43 Unspecified severe protein-calorie malnutrition; D68.9 Coagulation defect, unspecified; J90 Pleural effusion, not elsewhere classified; E22.2 Syndrome of inappropriate secretion of antidiuretic hormone; J18.9 Pneumonia, unspecified organism; I31.3 Pericardial effusion (noninflammatory); D69.6 Thrombocytopenia, unspecified; E83.42 Hypomagnesemia; E83.51 Hypocalcemia; E87.6 Hypokalemia; F15.10 Other stimulant abuse, uncomplicated; F11.10 Opioid abuse, uncomplicated; F17.210 Nicotine dependence, cigarettes, uncomplicated; Z59.0 Homelessness; R07.81 Pleurodynia; R73.03 Prediabetes; R59.1 Generalized enlarged lymph nodes; D50.9 Iron deficiency anemia, unspecified; J98.11 Atelectasis
CPT/HCPCS: 32555; 36415; 36569; 36600; 70030-TC; 71010; 71250; 71275; 80307; 82533; 83605; 83615; 83735; 83986; 84100; 84155; 84300; 84443; 85025; 85730; 86480; 87040; 87070; 87077; 87086; 87205; 87400; 87806; 89055; 93005; 93307; 93312; 94664; 97161; A4663; A9547; J1885; J1956; J2185; J2270; J2405; J2543; J3370; J3475; J3480; J3490; J7030; J7050; J7060; J7120; Q9967